=== PATIENT | male | born 1940 | race Caucasian/White ===

== ENCOUNTER 2017-08-07 10:44 | Day surgery (SDC) | payer MEDICARE, OTHER ==
--- NOTE | 2017-08-02 18:55 | HP ---
CC: Jim Calhoun DO * HISTORY AND PHYSICAL: DATE OF SURGERY: 08/07/17 ATTENDING PHYSICIAN: Uday Jackson MD * (DICTATED BY SIENNA ASHLEY) PRIMARY CARE PHYSICIAN: Jim Calhoun DO CHIEF COMPLAINT: Bilateral inguinal hernia. HISTORY OF PRESENT ILLNESS: Mr. Xie is a pleasant 77-year-old gentleman who presented to the office today to discuss hernia repair. The patient had noticed a small bulge to his left groin approximately 2 weeks ago while he was playing softball. He first thought that it was a groin strain related to running and being active outdoors; however, he noticed increasing bulge to the left groin that he was able to push back with no difficulty. He notes mild tenderness upon reducing his hernia but denies any significant pain, changes in the bowel habits, nausea, or vomiting. He denies any similar complaints on that right side. He otherwise is an extremely healthy 77-year-old gentleman with no significant past medical history. He has never had any hernias or hernia repairs in the past. He reported that the pain in his left groin now is dull and achy and definitely gets worse with any weight lifting or physical exertion. He has history of chronic cough for 20 years or so that he has been followed through and had multiple chest x-rays that revealed no evidence of asthma or COPD. The patient was seen by his primary care physician and was diagnosed with left femoral hernia. The patient was referred to Dr. Jackson for further evaluation and to discuss possible hernia repair. PAST MEDICAL HISTORY: Significant for: 1. Osteoarthritis. 2. Peripheral neuropathy for which he had a negative nerve conductive study and has been on vitamin B12 supplement for possible neuropathy. He denies any history of lung, liver, heart or kidney disease. PAST SURGICAL HISTORY: Significant for bilateral knee arthroscopy for meniscus repair on the left side back in 2008 and most recently on the right side in 2014. CURRENT MEDICATIONS: His medications at home include: 1. Vitamin D 5000, 1 tablet daily. 2. Vitamin B12, 3000 mcg 1 tablet daily. 3. Vitamin B complex 1 tablet a day. 4. Magnesium supplement 300 mg as needed. 5. Aspirin 81 mg daily. ALLERGIES: He has no known drug allergies. FAMILY HISTORY: Noncontributory. SOCIAL HISTORY: The patient is . He is a retired more[employer]. He has never smoked. He drinks wine on occasion and he denies any illicit drug use. He exercises on a regular basis, plays softball twice a week and volleyball in the winter. REVIEW OF SYSTEMS: See HPI, otherwise negative. He denies any headache, dizziness, blurred vision, or double vision. No fever, chills, night sweats, or recent weight loss. No abdominal pain, nausea, vomiting, or changes in bowel habits. He admits to a left inguinal hernia that he noticed 2 weeks ago. Denies any changes in bowel habits or changes in urination. No flank pain, back pain, dysuria, or hematuria. PHYSICAL EXAMINATION GENERAL: He is a pleasant older gentleman, extremely healthy appearing and in no acute distress or discomfort. VITALS: His vitals revealed a blood pressure of 128/86, pulse of 60, temperature of 98.4, and respirations of 16. He is 6 feet tall, weight 168 pounds with BMI of 22. HEENT: Sclerae anicteric. PERRLA. EOMs intact. Oropharynx is pink and moist with no exudate. NECK: Supple. Trachea midline. No cervical adenopathy, thyromegaly, or JVD. LUNGS: Clear to auscultation bilaterally. HEART: Regular rate and rhythm. Normal S1 and S2 without rubs, murmurs, or gallops. BACK: Normal curvature. No CVA tenderness. ABDOMEN: Soft, nontender, and nondistended. There are bilateral reducible inguinal hernias noted with the patient standing. Mild tenderness noted on the left side of the hernia that was still easily reducible. There is no guarding, rigidity, or rebound tenderness. No swelling or tenderness on scrotal exam. RECTAL: Deferred at this time. EXTREMITIES: Without cyanosis, clubbing, or edema. NEUROLOGIC: Grossly intact. IMPRESSION: A 77-year-old gentleman with bilateral inguinal hernias. PLAN: We went on and discussed with the patient proceeding with surgery. He is scheduled for a laparoscopic bilateral inguinal hernia repair by Dr. Jackson on 08/07/17. We discussed with him the rationale, indications, risks, and benefits, and he appears to be a good candidate for such surgery. Risks include but not limited to infection, bleeding, or injury to adjacent structures. The patient understands and agrees to proceed as outlined. SIENNA ASHLEY [id number]/[facility] #: [id number] QAMAR
[~2017-08-07 10:44] MED LIST: Buffered Lidocaine 0.9% SYRIN* 5 ML/SYR SYRINGE INTRADERM ONE; Famotidine IV* 10 MG/ML 2 ML (20 mg) IV ONE; Morphine INJ* 2 MG/ML 1 ML CARPUJECT IV PRN; Ondansetron INJ* 2 MG/ML VIAL IV PRN; PROCHLORPERAZINE INJ 5 MG/ML 2 ML VIAL IV PRN; fentaNYL* 50 MCG/ML 2 ML VIAL (100 MCG VIAL) IV PRN; oxyCODONE/Acetamin 5/325 MG* TAB PO PRN
[2017-08-07] MEDS ORDERED: Buffered Lidocaine 0.9% SYRIN* 5 ML/SYR SYRINGE ONE (10:51)
[2017-08-07] MEDS ORDERED: ceFAZolin 2 GM PREMIX (*) 50 ML IVPB ONE (10:51)
[2017-08-07] MEDS ORDERED: Famotidine IV* 10 MG/ML 2 ML (20 mg) ONE (10:51)
[2017-08-07] MEDS ORDERED: KETAMINE HCL* 50 MG/ML 10 ML VIAL ONE (12:33)
[2017-08-07] MEDS ORDERED: fentaNYL* 50 MCG/ML 2 ML VIAL (100 MCG VIAL) ONE (12:33)
[2017-08-07] MEDS ORDERED: Midazolam* 1 MG/ML 5 ML VIAL (5 MG) ONE (12:33)
[2017-08-07] MEDS ORDERED: Atracurium* 10 MG/ML 10 ML VIAL ONE (12:33)
[2017-08-07] MEDS ORDERED: Bupivacaine 0.5% SDV PF* 30 ML VIAL ONE (14:24)
[2017-08-07] MEDS ORDERED: Phenylephrine IV* 40 MCG/ML 10 ML SYRINGE ONE (15:17)
[2017-08-07] MEDS ORDERED: Ketorolac INJ* 30 MG/ML 1 ML VIAL ONE (15:18)
[2017-08-07] MEDS ORDERED: Ondansetron INJ* 2 MG/ML VIAL ONE (15:18)
[2017-08-07] MEDS ORDERED: Propofol* 10 MG/ML 20 ML BTL IV PUSH ONE (15:18)
[2017-08-07] MEDS ORDERED: Dexamethasone IV* 4 MG/ML 1 ML (4 MG) ONE (15:18)
[2017-08-07] MEDS ORDERED: Lidocaine 2% PF * 5 ML VIAL ONE (15:18)
[2017-08-07] MEDS ORDERED: Neostigmine Methylsulfate* 2 MG/2 ML SYRINGE ONE (15:45)
[2017-08-07] MEDS ORDERED: Glycopyrrolate IV* 0.2 MG/ML 1 ML VIAL ONE (15:45)
[2017-08-07] MEDS ORDERED: oxyCODONE/Acetamin 5/325 MG* TAB PO PRN (16:02)
[2017-08-07] MEDS ORDERED: hydrALAZINE IV* 20 MG/ML VIAL IV SLOW PU ONE (16:30)
[2017-08-07] MEDS ORDERED: hydrALAZINE IV* 20 MG/ML VIAL ONE (16:32)
[2017-08-07] MEDS ORDERED: oxyCODONE/Acetamin 5/325 MG* TAB ONE (18:27)
[2017-08-07 18:31] VITALS: BP 144/76
--- NOTE | 2017-08-08 12:42 | OP ---
CC: Jim Calhoun DO OPERATIVE REPORT: DATE OF OPERATION: 08/07/17 DATE OF : 44 SURGEON: Uday Jackson MD SEED CLEANING MACHINE OPERATOR: SIENNA Douglas ANESTHESIOLOGIST: Narayan Gresham MD ANESTHESIA: General endotracheal. PRE-OP DIAGNOSIS: Bilateral inguinal hernias. POST-OP DIAGNOSIS: Bilateral inguinal hernias. OPERATIVE PROCEDURE: Laparoscopic preperitoneal repair of bilateral inguinal hernias with mesh. ESTIMATED BLOOD LOSS: Minimal. IV FLUIDS: Crystalloid. SPECIMEN: None. DRAINS: None. COMPLICATIONS: None. COUNTS: The instrument, needle, and sponge counts were correct. DESCRIPTION OF PROCEDURE: The patient was brought to the operating room and placed on the table sup ine. Sequential compression devices were placed on both lower extremities. General anesthesia was administered. He received appropriate intravenous antibiotics, and his abdomen was prepped and drap ed in the usual sterile fashion. Time-out was performed. Local anesthetic was infiltrated in the skin and soft tissue prior to making each incision. Initial incision was a curvilinear infraumbilical incision and then the rectus sheath was identified. This was incised transversely to the right of midline. The underlying rectus muscles were retracted lat erally and the preperitoneal balloon dissector was positioned down to the level of pubic symphysis. Under direct visualization, this was insufflated. The balloon was removed and then replaced with a 12-mm blunt trocar, and then carbon dioxide was insufflated to the preperitoneal space with pressur e of 10 mmHg. Under direct visualization, two 5 mm trocars were placed in the lower midline. Disse ction proceeded first on the right side. The symphysis pubis was identified as was the Edmund's lig ament. The inferior epigastric vessels were identified and maintained in anterior position. There w as a direct inguinal hernia containing fat, which was reduced. The spermatic cord components were i dentified and preserved. The peritoneal reflection was completely dissected back away from the jayne ia orifices. The dissection proceeded laterally to the anterosuperior iliac spine. At this point, t he attention was then turned to the left side. Again, identification of the midline and Edmund's li gament was performed and the inferior epigastric vessels were maintained in the anterior position. There was no evidence of direct inguinal hernia, but there was an indirect inguinal hernia sac that was from the cord structures. There was a small rent made in the sac, which was repaired with endoscopic clip placement. Again the dissection proceeded laterally to the anterosuperior mark c spine. At this point, the repair was performed on each side with the Bard 3D Max large size mesh. This was placed into the preperitoneal space and positioned to cover the direct and indirect infer ior most spaces and the CapSure tacker was used to secure the mesh at the Edmund's ligament and at t he symphysis. The repair was performed in a similar fashion on the right side with overlapping of t he mesh in the midline. The space was desufflated with good visualization of the mesh making sure t hey were in appropriate position. The ports were then removed. Carbon dioxide was released. The i nfraumbilical incision was closed with 0 Polysorb to approximate the fascia. Skin incisions were cl osed with 4-0 Monocryl in subcuticular fashion. Steri-Strips were applied. The patient tolerated t he procedure well and was extubated, transferred to recovery room in stable condition. [id number]/[facility] #: [id number]
== END 2017-08-07 19:01 | disposition home or self-care (01) ==
LOC: OR 10:44
PROVIDERS: ATTEND Surgery
DX: K40.20 Bilateral inguinal hernia, without obstruction or gangrene, not specified as recurrent (principal); M19.90 Unspecified osteoarthritis, unspecified site; Z79.82 Long term (current) use of aspirin
CPT/HCPCS: A9270-GY; C1776; C1781; J0360; J0690; J1100; J1885; J2250; J2405; J2704; J3010

== ENCOUNTER 2019-02-17 14:31 | Emergency (ER) | payer MEDICARE ==
[2019-02-17] MEDS ORDERED: NS 0.9% 1000 ML** 1,000 ML IV ONE (14:39)
--- NOTE | 2019-02-17 14:54 | ED ---
Syncope/Near Syncope - HPI Summary HPI Summary: Pt is a 78 y/o male brought in by EMS who presents to the ED s/p near-syncopal episodes. He was exerting himself outside, jamming a metal bar into wood. Pt suddenly became dizzy, near-syncopal, and nauseated. He denies any true syncope or LOC. Pt currently states his head feels stuffed up. He denies any CP, palpitations, vomiting, or diarrhea. Pt notes in June 2018 he had a similar episode of near-syncope after playing softball. Pt takes daily ASA. He denies any cardiac history. - History Of Current Complaint Time Seen by Provider: 02/17/19 14:35 Hx Obtained From: Patient Onset/Duration: Gradual Onset, Lasting Hours - CO OP, Resolved Context: Witnessed Activity At Onset: Exertion Associated Head Trauma: No Aggravating Factor(s): Nothing Alleviating Factor(s): Spontaneous Resolution Associated Signs And Symptoms: Dizzy, Other - nausea Related History: Similar Episode/Dx as - June 2018 near-syncope - Allergies/Home Medications Allergies/Adverse Reactions: Allergies Allergy/AdvReac Type Severity Reaction Status Date / Time No Known Allergies Allergy Verified 08/07/17 11:03 PMH/Surg Hx/FS Hx/Imm Hx Endocrine/Hematology History: Denies: Hx Diabetes Cardiovascular History: Denies: Hx Hypertension, Hx Pacemaker/ICD Respiratory History: Denies: Hx Asthma Sensory History: Denies: Hx Contacts or Glasses, Hx Hearing Aid Opthamlomology History: Denies: Hx Contacts or Glasses Neurological History: Reports: Hx Nerve Disease - hereditary neuropathy Psychiatric History: Denies: Hx Panic Disorder - Cancer History Hx Chemotherapy: No - Surgical History Surgery Procedure, Year, and Place: ARTHROSCOPY LT KNEE Hx Anesthesia Reactions: No Infectious Disease History: No Infectious Disease History: Denies: Traveled Outside the [place] in Last 30 Days - Family History Known Family History: Positive: Other - R&NC - Social History Alcohol Use: Rare Hx Substance Use: No Substance Use Type: Reports: None Hx Tobacco Use: No Smoking Status (MU): Never Smoked Tobacco Review of Systems Negative: Palpitations, Chest Pain Positive: Nausea. Negative: Vomiting, Diarrhea Neurological: Other - dizziness, head "stuffed up" NEGATIVE: syncope, LOC Positive: Syncope - near All Other Systems Reviewed And Are Negative: Yes Physical Exam - Summary Physical Exam Summary: Appearance: well appearing, no pain distress Skin: warm, dry, reflects adequate perfusion Head/face: normal Eyes: EOMI, LISA ENT: mucous membranes moist Neck: supple, non-tender Respiratory: CTA, breath sounds present Cardiovascular: RRR, pulses symmetrical Abdomen: non-tender, soft Bowel Sounds: present Musculoskeletal: normal, strength/ROM intact Neuro: normal, sensory motor intact, A&Ox3 Triage Information Reviewed: Yes Vital Signs On Initial Exam: Initial Vitals Temp Pulse Resp BP Pulse Ox 98.1 F 81 16 153/115 92 02/17/19 14:35 02/17/19 14:35 02/17/19 14:35 02/17/19 14:35 02/17/19 14:35 Vital Signs Reviewed: Yes Diagnostics - Vital Signs Vital Signs Temp Pulse Resp BP Pulse Ox 02/17/19 14:35 98.1 F 81 16 153/115 92 - Laboratory Result Diagrams: 02/17/19 14:53 02/17/19 14:53 Lab Statement: Any lab studies that have been ordered have been reviewed, and results considered in the medical decision making process. - EKG 14:45 Cardiac Rate: NL - 72 bpm EKG Rhythm: Sinus Rhythm ST Segment: Normal Summary of EKG Findings: Nl axis, nl intervals Course/Dx Course Of Treatment: Nurse's notes reviewed. Patient with near syncopal episode while doing heavy exertion. He is now back to normal with normal blood pressures. He is not on medications that would cause this. His EKG and laboratories are all benign. He'll follow up closely with his primary care physician. - Diagnoses Differential Diagnosis/HQI/PQRI: Positive: Coronary Artery Disease, Dysrhythmia , Metabolic Reaction, Medication Reaction Provider Diagnoses: Near syncope Discharge - Sign-Out/Discharge Documenting (check all that apply): Patient Departure - Discharge Patient Received Moderate/Deep Sedation with Procedure: No - Discharge Plan Condition: Improved Disposition: HOME Patient Education Materials: Near Syncope (ED) Referrals: Jim Calhoun DO [Primary Care Provider] - Additional Instructions: Stay well-hydrated. Sit or lie down if you feels weak, faint or lightheaded. Call your doctor first thing in the morning to schedule prompt follow-up. Return with chest pain, shortness of breath, repeat passing out, new symptoms or other concerns. - Billing Disposition and Condition Condition: IMPROVED Disposition: Home - Attestation Statements Document Initiated by Dougibmarisa: Yes Documenting Scribe: Cinthya Lainez Provider For Whom Gaetano is Documenting (Include Credential): Vinnie George MD Scribe Attestation: ICinthya, scribed for Vinnie George MD on 02/17/19 at 1932. Scribe Documentation Reviewed: Yes Provider Attestation: The documentation as recorded by the Cinthya andrade accurately reflects the service I personally performed and the decisions made by me, Vinnie George MD Status of Scribe Document: Viewed
[2019-02-17 15:09] LABS: ABS Basophils 0.1 10^3/ul (0-0.2); ABS Eosinophils 0.1 10^3/ul (0-0.6); ABS Lymphocytes 0.9 10^3/ul (1.0-4.8); ABS Monocytes 0.6 10^3/ul (0-0.8); ABS Neutrophils 7.9 10^3/ul (1.5-7.7); ABS Nucleated RBC 0 10^3/ul; Eosinophil % 0.9 %; Hematocrit 44 % (36-46); Hemoglobin 14.7 g/dL (14.0-18.0); Lymphocyte % 9.5 %; Mean Corpuscular HGB Conc 33 g/dL (31-36); Mean Corpuscular Hemoglobin 32 pg (27-31); Mean Corpuscular Volume 95 fL (80-94); Mean Platelet Volume 8.3 fL (7.4-10.4); Nucleated Red Blood Cells % 0.1; Platelet Count 245 10^3/uL (150-450); Red Blood Count 4.64 10^6 /uL (4.18-5.48); Red Cell Distribution Width 14 % (10.5-15); White Blood Count 9.5 10^3/uL (3.5-10.8)
[2019-02-17 15:26] LABS: Troponin I 0.01 ng/mL (<0.04)
[2019-02-17 15:28] LABS: BUN/Creatinine Ratio 15.1 (8-20); Calcium 9.3 mg/dL (8.6-10.3); EGFR African American 82.2 (>60); EGFR Non-African American 67.9 (>60); Potassium 4.1 mmol/L (3.5-5.0)
[2019-02-17 15:44] VITALS: BP 148/85
== END 2019-02-17 15:42 | disposition home or self-care (01) ==
LOC: ED 14:31
DX: R55 Syncope and collapse (principal); R42 Dizziness and giddiness; R11.0 Nausea
CPT/HCPCS: 36415; 80048; 84484; 85025; 93005; 96360; 99282

== ENCOUNTER 2022-11-21 07:55 | Observation (INO) ==
[~2022-11-21 07:55] MED LIST changes: +BUPIVACAINE **LIPOSOME/PF 13.3 MG/ML (266MG/ 20ML) VIAL (RESTRICTED) INFIL ONE; -Buffered Lidocaine 0.9% SYRIN* 5 ML/SYR SYRINGE INTRADERM ONE; +Buffered Lidocaine 1% SYRIN 1 ml INTRADERM ONE; -Famotidine IV* 10 MG/ML 2 ML (20 mg) IV ONE; +Lactated Ringers 1000 ml BAG 1,000 ML IV SCH; -Morphine INJ* 2 MG/ML 1 ML CARPUJECT IV PRN; +Naloxone 0.4 mg VIAL 0.4 mg/ml 1 ml VIAL IV PRN; +Ondansetron 4 mg VIAL 2 MG/ML 2 ml VIAL IV PRN; -Ondansetron INJ* 2 MG/ML VIAL IV PRN; -PROCHLORPERAZINE INJ 5 MG/ML 2 ML VIAL IV PRN; +fentaNYL 100 mcg/2 ml 50 MCG/ML VIAL IV PRN; -fentaNYL* 50 MCG/ML 2 ML VIAL (100 MCG VIAL) IV PRN; -oxyCODONE/Acetamin 5/325 MG* TAB PO PRN
[2022-11-21] MEDS ORDERED: Tranexamic Acid 1 GM/100ML BAG 2,000 MG/200 ML BAG IV ONE (08:06)
[2022-11-21] MEDS ORDERED: ceFAZolin 2 GM in NS PREMIX 2 GM/100 ML BAG IVPB ONE (08:06)
[2022-11-21] MEDS ORDERED: Bupivacaine 0.25% SDV 30 ML ONE (09:36)
[2022-11-21] MEDS ORDERED: Midazolam 2 mg/2 ml VIAL 1 mg/ml 2 ml VIAL (2 mg) ONE ×2 (10:56→17:52)
[2022-11-21] MEDS ORDERED: Propofol 0 MG/0 ML BTL ONE (10:58)
[2022-11-21] MEDS ORDERED: Lidocaine 2% PF 5 ML VIAL ONE (10:58)
[2022-11-21] MEDS ORDERED: Phenylephrine IV 10 MG/ML 1 ml VIAL ONE (10:58)
[2022-11-21] MEDS ORDERED: Propofol 10 MG/ML 20 ML BTL ONE ×2 (17:52→18:11)
[2022-11-21] MEDS ORDERED: Ondansetron 4 mg VIAL 2 MG/ML 2 ml VIAL ONE (18:46)
[2022-11-21] MEDS ORDERED: Acetaminophen IV 1 GM/100ML 1,000 MG/100 ML BAG IV ONE (19:03)
[2022-11-21] MEDS ORDERED: Ondansetron ODT 4 mg TAB 4 MG TAB PO PRN (20:29)
[2022-11-21] MEDS ORDERED: Magnesium Hydroxide LIQ 30 ML UDC PO PRN (20:29)
[2022-11-21] MEDS ORDERED: Ondansetron 4 mg VIAL 2 MG/ML 2 ml VIAL IV PRN (20:29)
[2022-11-21] MEDS ORDERED: Lactulose 30 ml UDC PO PRN (20:29)
[2022-11-21] MEDS: Magnesium Hydroxide LIQ 30 ML UDC PO SCH ×2 (22:30→22:32)
[2022-11-22] MEDS: Lactated Ringers 1000 ml BAG 1,000 ML IV SCH ×2 (02:13→08:07)
[2022-11-22] MEDS: ceFAZolin 1 GM ADVAN 1 GM in NS 0.9% 50 ML 50 ML IVPB SCH ×2 (02:13→10:04)
[2022-11-22] MEDS ORDERED: Lactated Ringers 1000 ml BAG 500 ML IV ONE (02:18)
[2022-11-22 06:24] LABS: Hematocrit 35 % (42-52); Hemoglobin 12.1 g/dL (14.0-18.0); Mean Platelet Volume 8.1 fL (7.4-10.4); Platelet Count 189 10^3/uL (150-450)
[2022-11-22 06:42] LABS: Calcium 7.8 mg/dL (8.6-10.3); Potassium 3.9 mmol/L (3.5-5.0); eGFR CKD-EPI 80.9 (>60)
[2022-11-22] MEDS: NS 0.9% 250 ml 250 ML IVPB ONE ×2 (08:07→11:55)
[2022-11-22] MEDS ORDERED: Vitamin THERAPEUTIC TAB PO SCH (09:00)
[2022-11-22] MEDS: Magnesium Hydroxide LIQ 30 ML UDC PO SCH (09:01)
[2022-11-22 11:49] VITALS: BP 103/55
== END 2022-11-22 13:00 | disposition home or self-care (01) ==
LOC: SSU 07:55 → OR 07:55 → SUATTDRO 21:58
PROVIDERS: ADMIT Orthopaedic Surgery Sports Medicine; ATTEND Internal Medicine Hematology & Oncology

== ENCOUNTER 2024-01-06 08:33 | Observation (INO) ==
[2024-01-06 08:57] LABS: ABS Eosinophils 0.1 10^3/uL (0.0-0.5); ABS Lymphocytes 0.9 10^3/uL (1.0-4.8); ABS Monocytes 0.8 10^3/uL (0.0-1.1); ABS Neutrophils 4.9 10^3/uL (1.5-7.6); Eosinophil % 1.7 %; Hematocrit 39.3 % (38-53); Hemoglobin 13.3 g/dL (13.2-16.3); Lymphocyte % 13.3 %; Mean Corpuscular Hemoglobin 32.4 pg (27-33); Mean Corpuscular Hgb Conc 33.9 g/dL (31-36); Mean Corpuscular Volume 95.6 fL (80-97); Mean Platelet Volume 8.6 fL (7.5-11.2); Platelet Count 223 10^3/uL (150-450); Red Blood Count 4.12 10^6/uL (4.06-5.63); Red Cell Distribution Width 13.7 % (12-17); White Blood Count 6.9 10^3/uL (3.6-10.2)
[2024-01-06 09:05] LABS: INR 1.32 (0.83-1.13)
[2024-01-06 09:14] LABS: Albumin 3.8 g/dL (3.2-5.2); Albumin/Globulin Ratio 1.2 (1-3); Calcium 8.8 mg/dL (8.6-10.3); Creatinine, Serum 0.94 mg/dL (0.67-1.17); Globulin 3.2 g/dL (2-4); Potassium 3.7 mmol/L (3.5-5.0); Total Bilirubin 0.8 mg/dL (0.2-1.0); eGFR CKD-EPI 81.4 (>60)
[2024-01-06 10:27] LABS: High Sensitivity Troponin 1 Hr 3 pg/mL (<20)
[2024-01-06] MEDS ORDERED: Morphine 2 MG/ML SYRINGE IV PRN (11:12)
[2024-01-06] MEDS ORDERED: Aspirin EC 81 mg TAB.EC (enteric coated) PO SCH (12:00)
[2024-01-06] MEDS: CMCS:Isosorbide Mononitr 20 mg (NF) PO SCH (12:43)
[2024-01-07 05:56] LABS: High Sensitivity Troponin 1 Hr 4 pg/mL (<20)
[2024-01-07] MEDS: Aspirin EC 81 mg TAB.EC (enteric coated) PO SCH (08:53)
[2024-01-07] MEDS: Cholecalciferol (VIT D3) 1,000 unit TAB PO SCH (08:54)
[2024-01-07] MEDS ORDERED: VERAPAMIL 2.5 MG/ML 2 ML VIAL ** 5 mg/2 ml ONE (11:37)
[2024-01-07] MEDS ORDERED: nitroGLYCERIN DRIP 25,000 MCG/250 ML BTL ONE (11:37)
[2024-01-07] MEDS ORDERED: Iohexol 350 (CONTRAST) 100 ML PAK IV ONE (11:37)
[2024-01-07] MEDS ORDERED: Heparin 1,000 UNIT/ML 10 ml (10,000 UNITS) CATHLAB/DIALYSIS ONE (11:37)
[2024-01-07] MEDS ORDERED: Lidocaine 1% MPF 5 ML VIAL ONE (11:37)
[2024-01-07] MEDS ORDERED: Heparin 2 UNITS/ML 1000 mls 2,000 ML IV ONE (11:37)
[2024-01-07] MEDS ORDERED: Midazolam 5 mg/5 ml VIAL 1 mg/ml 5 ml VIAL (5 mg) ONE (11:43)
[2024-01-07] MEDS ORDERED: fentaNYL 100 mcg/2 ml 50 MCG/ML VIAL ONE ×2 (11:43→12:38)
[2024-01-07] MEDS ORDERED: Iohexol 350 (CONTRAST) 200 ML MDV IV ONE (12:02)
[2024-01-07] MEDS ORDERED: niCARdipine 0.1MG/ML IVPREMIX 20 MG/200 ML BAG IV ONE (12:05)
[2024-01-07] MEDS ORDERED: Heparin 2 UNITS/ML 1000 mls 1,000 ML IV ONE (12:07)
[2024-01-07] MEDS ORDERED: Ondansetron 4 mg VIAL 2 MG/ML 2 ml VIAL IV PRN (12:57)
[2024-01-08 05:03] LABS: ABS Basophils 0.1 10^3/uL (0.0-0.1); ABS Eosinophils 0.3 10^3/uL (0.0-0.5); Eosinophil % 3.8 %; Hematocrit 36.8 % (38-53); Hemoglobin 12.5 g/dL (13.2-16.3); Lymphocyte % 13.4 %; Mean Corpuscular Hemoglobin 32.5 pg (27-33); Mean Corpuscular Hgb Conc 33.9 g/dL (31-36); Mean Corpuscular Volume 95.7 fL (80-97); Mean Platelet Volume 8.3 fL (7.5-11.2); Platelet Count 199 10^3/uL (150-450); Red Blood Count 3.84 10^6/uL (4.06-5.63); Red Cell Distribution Width 14.1 % (12-17); White Blood Count 7.4 10^3/uL (3.6-10.2)
[2024-01-08 05:22] LABS: Calcium 8.6 mg/dL (8.6-10.3); Creatinine, Serum 0.83 mg/dL (0.67-1.17); HDL Cholesterol 28.6 mg/dL; Potassium 4.2 mmol/L (3.5-5.0); eGFR CKD-EPI 87.9 (>60)
[2024-01-08 06:02] VITALS: BP 127/71
[2024-01-08] MEDS ORDERED: Midazolam 10 mg/10 ml VIAL 1 mg/ml 10 ml VIAL (10 mg) IV SLOW PU ONE (09:00)
[2024-01-08] MEDS ORDERED: NS 0.9% 1000 ml BAG 1,000 ML IV SCH (09:00)
[2024-01-08] MEDS: fentaNYL 100 mcg/2 ml 50 MCG/ML VIAL IV SLOW PU ONE (09:39)
== END 2024-01-08 11:25 | disposition home or self-care (01) ==
LOC: ED 08:33 → EDHOLD 08:33 → ICU 01-07 14:11
PROVIDERS: ADMIT Hospitalist; ATTEND Hospitalist

== ENCOUNTER 2024-07-24 08:57 | Observation (INO) ==
[2024-07-24] MEDS ORDERED: Lorazepam PYXIS KEY PRN (10:00)
[2024-07-24] MEDS: LORazepam 2 mg VIAL 1 ml IV PUSH ONE (10:05)
[2024-07-24] MEDS: Lactated Ringers 1000 ml BAG IV.FLUID IV ONE ×2 (10:06→12:25)
[2024-07-24 10:07] LABS: Hematocrit 41.7 % (38-53); Mean Corpuscular Hemoglobin 31.9 pg (27-33); Mean Corpuscular Hgb Conc 33.5 g/dL (31-36); Mean Corpuscular Volume 95.2 fL (80-97); Mean Platelet Volume 8.6 fL (7.5-11.2); Platelet Count 216 10^3/uL (150-450); Red Blood Count 4.38 10^6/uL (4.06-5.63); Red Cell Distribution Width 13.9 % (12-17)
[2024-07-24 10:14] LABS: INR 1.77 (0.85-1.14)
[2024-07-24 11:14] LABS: Albumin 3.9 g/dL (3.2-5.2); Albumin/Globulin Ratio 1.4 (1-3); C Reactive Protein 32.24 mg/L (<8.01); Creatinine, Serum 1.05 mg/dL (0.67-1.17); Globulin 2.7 g/dL (2-4); Magnesium 1.5 mg/dL (1.9-2.7); Phosphorus 1.8 mg/dL (2.5-5.0); Potassium 4.1 mmol/L (3.5-5.0); Total Bilirubin 1.2 mg/dL (0.2-1.0); Total Protein 6.6 g/dL (6.4-8.9); eGFR CKD-EPI 70.9 (>60)
[2024-07-24 11:40] LABS: High Sensitivity Troponin 1 Hr 4 pg/mL (<20)
[2024-07-24 11:43] LABS: RBC Morphology Normal (Normal)
[2024-07-24 11:44] LABS: ABS Neutrophils 1.9 10^3/ul (1.5-7.6)
[2024-07-24 11:45] LABS: ABS Eosinophils 0.2 10^3/ul (0.0-0.5); ABS Lymphocytes 0.9 10^3/ul (1.0-4.8)
[2024-07-24] MEDS: Magnesium Sulfate 2 gm BAG 2 GM/50 ML BAG IVPB ONE (12:24)
[2024-07-24 12:43] LABS: Urine Appearance Clear; Urine Bilirubin Negative (Negative); Urine Blood Negative (Negative); Urine Color Yellow; Urine Glucose Negative (Negative); Urine Ketones 1+ (Negative); Urine Nitrite Negative (Negative); Urine Protein Trace (Negative); Urine Specific Gravity 1.027 (1.002-1.030); Urine Urobilinogen Negative (Negative); Urine pH 5.5 (5.0-8.0)
[2024-07-24] MEDS: Lactated Ringers 1000 ml BAG 1,000 ML IV ONE (17:59)
[2024-07-25 06:17] LABS: Hematocrit 35.5 % (38-53); Hemoglobin 12.1 g/dL (13.2-16.3); Mean Corpuscular Hemoglobin 32.5 pg (27-33); Mean Corpuscular Hgb Conc 34.2 g/dL (31-36); Mean Corpuscular Volume 95.1 fL (80-97); Mean Platelet Volume 8.5 fL (7.5-11.2); Platelet Count 170 10^3/uL (150-450); Red Blood Count 3.73 10^6/uL (4.06-5.63); White Blood Count 4.9 10^3/uL (3.6-10.2)
[2024-07-25 06:48] LABS: Calcium 7.9 mg/dL (8.6-10.3); Creatinine, Serum 0.85 mg/dL (0.67-1.17); Magnesium 1.7 mg/dL (1.9-2.7); Potassium 4.2 mmol/L (3.5-5.0); eGFR CKD-EPI 86.8 (>60)
[2024-07-25] MEDS: Magnesium Sulfate 2 gm BAG 2 GM/50 ML BAG IVPB ONE (07:59)
[2024-07-25 08:29] LABS: ABS Eosinophils 0.1 10^3/uL (0.0-0.5); ABS Lymphocytes 0.8 10^3/uL (1.0-4.8); ABS Neutrophils 2.9 10^3/uL (1.5-7.6); Eosinophil % 3.1 %; Lymphocyte % 16.1 %
[2024-07-25 09:42] VITALS: BP 118/59
== END 2024-07-25 13:07 | disposition home or self-care (01) ==
LOC: ED 08:57 → INTOOBSV 15:05 → EDHOLD 15:05 → MEDTELE 16:29
PROVIDERS: ADMIT Hospitalist; ATTEND Hospitalist